=== PATIENT | female | born 1985 ===

== ENCOUNTER 2019-02-22 00:09 | Emergency (ER) | payer OTHER, SELFPAY ==
[2019-02-22] MEDS ORDERED: diphenhydrAMINE 25 MG CAP ONE (00:57)
[2019-02-22] MEDS ORDERED: predniSONE 20 MG TAB ONE (02:27)
[2019-02-22] MEDS ORDERED: Dexamethasone 10 MG/ML VIAL ONE (02:28)
== END 2019-02-22 02:45 | disposition home or self-care (01) ==
LOC: ERS 00:09
DX: T78.40XA Allergy, unspecified, initial encounter (principal)
CPT/HCPCS: 96372; 99283; J1100; J7512; Q0163